=== PATIENT | female | born 1995 | race Caucasian/White ===

== ENCOUNTER 2018-09-14 23:16 | Emergency (ER) | payer SELFPAY ==
[~2018-09-14] VITALS: Ht 157.5 cm; Wt 61.2 kg
[2018-09-14 23:20] VITALS: BP 115/73
--- NOTE | 2018-09-14 23:20 | NUR ---
ED Nurse Note: Pt was BIBA from street called 911 by katrina, possible due to drug over dose. Pt is A/O X 3 with drowsy. Vital signs stable at this time, waiting for orders.
--- NOTE | 2018-09-14 23:23 | Emergency Room Report ---
History of Present Illness General Chief Complaint: Overdose Source: Patient Present Illness HPI Is a 22-year-old female with unknown past medical history. He was brought in with chief complaint of possible overdose. She was found sleeping on someone's driveway. 911 was called and EMS brought her here. Patient denies any complaint. Admit to drinking tonight. Denies any drug abuse but denies any assault. No trauma. No other injury. Allergies: Coded Allergies: No Known Allergies (Unverified , 09/14/18) Patient History Past Medical History: see triage record, old chart reviewed, unable to obtain Past Surgical History: unable to obtain Pertinent Family History: unable to obtain Social History: Reports: alcohol use Last Menstrual Period: UNK Now: No Immunizations: other Reviewed Nursing Documentation: PMH: Agreed; PSxH: Agreed Nursing Documentation-PMH Past Medical History: No Stated History Review of Systems All Other Systems: limited - Secondary to intoxication Physical Exam Vital Signs Date Time Temp Pulse Resp B/P (MAP) Pulse Ox O2 Delivery O2 Flow Rate FiO2 09/14/18 23:11 98.1 99 16 115/73 (87) 95 Room Air vitals normal Sp02 EP Interpretation: reviewed, normal General Appearance: well appearing, no apparent distress, other - Sleepy, intoxicated Head: normocephalic, atraumatic Eyes: bilateral eye PERRL, bilateral eye EOMI ENT: hearing grossly normal, normal pharynx Neck: full range of motion, supple, no meningismus Respiratory: chest non-tender, lungs clear, normal breath sounds Cardiovascular #1: regular rate, rhythm, no murmur Gastrointestinal: normal bowel sounds, non tender, no mass, no organomegaly, no bruit, non-distended Musculoskeletal: back normal, normal range of motion Neurologic: speech normal Psychiatric: mood/affect normal Skin: warm/dry Medical Decision Making Diagnostic Impression: Primary Impression: Alcohol intoxication Qualified Codes: F10.920 - Alcohol use, unspecified with intoxication, uncomplicated Additional Impression: Cocaine abuse ER Course Patient presents with intoxication from alcohol and drugs. The middle her alcohol level is high, she walked to the bathroom without much difficulty. We' ll let her sleep here until she is more clinically sober. We'll discharge home in the morning. No trauma to warrant x-ray or CT scan. Last Vital Signs Date Time Temp Pulse Resp B/P (MAP) Pulse Ox O2 Delivery O2 Flow Rate FiO2 09/14/18 23:11 98.1 99 16 115/73 (87) 95 Room Air Status: improved Disposition: HOME, SELF-CARE Condition: Stable Additional Instructions: Abstain from drugs and alcohol. Follow-up with your doctor in 7 days. Return if worse. Paxton Sanchez MD Sep 14, 2018 23:23
--- NOTE | 2018-09-14 23:40 | NUR ---
ED Nurse Note: Blood collected and sent to Lab.
[2018-09-15 03:49] VITALS: BP 117/71
--- NOTE | 2018-09-15 03:49 | NUR ---
ER DISCHARGE NOTE: Patient is cleared to be discharged per Laura. Pt is aox 4 on room air with stable vital signs. Pt was given dc and prescription instructions and was able to verbalize understanding. Pt ID band removed. pt is able to ambulate with steady gait and took all belongings.
== END 2018-09-15 03:49 | disposition home or self-care (01) ==
LOC: EDBD 23:16 → EMR 23:27
DX: F10.920 Alcohol use, unspecified with intoxication, uncomplicated (principal); F14.10 Cocaine abuse, uncomplicated
CPT/HCPCS: 36415; 80307; 99283; G0480; 80329